=== PATIENT | male | born 1935 | race Caucasian/White ===

== ENCOUNTER → 2017-01-01 | Outpatient (CLI) | payer MEDICARE ==
--- NOTE | 2017-01-01 10:25 | US ---
EXAMINATION TYPE: US prostate transrectal DATE OF EXAM: 01/01/2017 7:53 AM COMPARISON: NONE CLINICAL HISTORY: R97.20 elevated PSA. This examination was performed using the transrectal probe. EXAM MEASUREMENTS: Gland Size: 5.6 x 3.6 x 6.3cm Volume: 66.3 Predicted PSA: 8.0 Actual PSA (if available):4.2 on 12/11/16, prev 3.2 on 06/06/16 Enlarged gland, heterogeneous, heavily calcified on the left, with no obvious mass. Seminal vesicles are unremarkable on initial images. Prostate gland is markedly enlarged in size. Narinder tral zone calcifications are seen. There is suggestion of 3 mm hypoechoic nodule left prostate lobe m id zone seen on images 10,752 and 12,032. IMPRESSION: Prostate gland is markedly enlarged in size consistent with BPH, a 3 mm hypoechoic perip heral zone nodule left mid prostate cannot be excluded. Consider sampling and/or short-term ultrasoun d/MRI follow-up.
== END | disposition home or self-care (01) ==
LOC: RADUSMAIN 07:49
PROVIDERS: ATTEND Family Medicine
DX: N40.0 Benign prostatic hyperplasia without lower urinary tract symptoms (principal); R97.20 Elevated prostate specific antigen [PSA]
CPT/HCPCS: 76872